=== PATIENT | female | born 1975 | race African-American/Black ===

== ENCOUNTER → 2016-10-04 | Outpatient (CLI) | payer OTHER ==
--- NOTE | 2016-10-04 15:40 | RAD ---
DATE: 10/04/16 EXAM: DIGITAL SCREEN BILAT W/CAD HISTORY: Routine screening COMPARISON: None available, this is a baseline exam This study was interpreted with the benefit of Computerized Aided Detection (CAD). TECHNIQUE: Routine CC and MLO views of both breasts are obtained. FINDINGS: Breast Density: DENSE The breast parenchyma is dense, which could reduce the sensitivity of mammography. Breast parenchyma level density D.. No suspicious clustered microcalcifications or architectural distortion seen. Skin and nipples are intact IMPRESSION: Negative exam BI-RADS CATEGORY: 1 NEGATIVE RECOMMENDED FOLLOW-UP: 12M 12 MONTH FOLLOW-UP PQRS compliance statement: Patient information was entered into a reminder system with a target due date for the next mammogram. Mammography is a sensitive method for finding small breast cancers, but it does not detect them all and is not a substitute for careful clinical examination. A negative mammogram does not negate a clinically suspicious finding and should not result in delay in biopsying a clinically suspicious abnormality. "Our facility is accredited by the [employer] Mammography Program."
== END | disposition home or self-care (01) ==
LOC: MAMMO 10:04
PROVIDERS: ATTEND Family Medicine
DX: Z12.31 Encounter for screening mammogram for malignant neoplasm of breast (principal)
CPT/HCPCS: G0202; 77067

== ENCOUNTER → 2017-02-07 | Outpatient (CLI) | payer OTHER ==
--- NOTE | 2017-02-07 13:18 | KCIC ---
Indication: Right knee pain. Time of exam 11:59 AM 3 views of the right knee were obtained. There is mild medial and patellofemoral compartmental degenerative change with mild joint space narrowing and marginal spurring. The articular surfaces are smooth. There is some spurring of the tibial spines as well. No fracture, dislocation or effusion is identified. IMPRESSION: Mild degenerative changes. No acute bony abnormality is detected. Electronically signed by: Charan Guerrero MD (02/07/2017 1:14 PM) [id number]
== END | disposition home or self-care (01) ==
LOC: KCIC 11:45
DX: M25.561 Pain in right knee (principal)
CPT/HCPCS: 73562